=== PATIENT | male | born 2000 | race Two or more races ===

== ENCOUNTER 2022-05-24 11:08 | Inpatient (IN) | payer OTHER ==
[~2022-05-24] VITALS: Ht 188 cm; Wt 65.0 kg
[2022-05-24 12:19] LABS: Basophils # (auto) 0.2 10 ^3/uL (0-0.2); Basophils % (auto) 0.8 % (0.0-2.0); Eosinophils # (auto) 0 10 ^3/uL (0-0.8); Eosinophils % (auto) 0.1 % (0.0-7.0); Hematocrit 45.5 % (41.0-53.0); Hemoglobin 15.6 g/dL (13.5-17.5); Lymphocytes % (auto) 4.9 % (10.0-50.0); Mean Corpuscular Hemoglobin 31.5 pg (28.0-32.0); Mean Corpuscular Hgb Conc. 34.4 g/dL (32.0-36.0); Mean Corpuscular Volume 91.6 fL (80.0-100.0); Monocytes # (auto) 1.5 10 ^3/uL (0-1.3); Monocytes % (auto) 7.2 % (0.0-12.0); Neutrophils # (auto) 18.4 10 ^3/uL (1.6-8.6); Nucleated Red Blood Cells % 0.1 %; Red Blood Cells 4.97 10^6/uL (4.5-5.90); Red Cell Distribution Width 12.3 % (11.8-14.3); White Blood Cell 21.1 10^3/uL (4.4-10.8)
[2022-05-24 12:29] LABS: Albumin 4.5 g/dL (3.4-5.0); Calcium 8.9 mg/dL (8.5-10.1); Potassium 4.2 mmol/L (3.5-5.1)
[2022-05-24 12:32] LABS: Bilirubin, Total 2.7 mg/dL (0.2-1.0); Total Protein 7.6 g/dL (6.4-8.2)
[2022-05-24 13:08] LABS: INR 1.01 (0.9-1.15); Partial Thromboplastin Time 27.3 sec (24.6-33.4)
[2022-05-24] MEDS ORDERED: LORazepam 0.5 MG TAB PO PRN (13:15)
[2022-05-24] MEDS ORDERED: SODIUM CHLORIDE 0.9% 1,000 ML IV ONE (13:15)
[2022-05-24] MEDS ORDERED: DOXYCYCLINE 100MG/250ML 250 ML IV ONE (13:15)
[2022-05-24] MEDS ORDERED: ONDANSETRON HCL 4 MG/2 ML VIAL IV PRN (13:15)
[2022-05-24] MEDS ORDERED: ACETAMINOPHEN 325 MG TAB PO PRN (13:15)
[2022-05-24] MEDS ORDERED: DOCUSATE SOD 100 MG CAP PO PRN (13:15)
[2022-05-24 16:36] LABS: Urine Bacteria NONE SEEN /hpf (None Seen); Urine Blood 3+ /uL (Negative); Urine Mucus FEW (None Seen); Urine Specific Gravity 1.018 (1.001-1.035); Urine WBC 2815 /hpf (0 - 3); Urine WBC Clumps PRESENT /hpf (None Seen)
[2022-05-24] MEDS: SODIUM CHLOR 0.9% PF (SALINE LOCK) 10ML VIAL/SYR IV SCH (17:45)
[2022-05-25] VITALS (9 sets, daily range): BP systolic 80–158; BP diastolic 40–72
[2022-05-25] MEDS: SODIUM CHLOR 0.9% PF (SALINE LOCK) 10ML VIAL/SYR IV SCH ×4 (00:06→22:28)
[2022-05-25] MEDS: DOXYCYCLINE 100MG/250ML 250 ML IV SCH ×3 (00:07→22:50)
[2022-05-25] MEDS: MORPHINE SULFATE INJ 2 MG/ml SYRG IV PRN ×2 (00:14→21:23)
[2022-05-25 08:27] LABS: Basophils # (auto) 0 10 ^3/uL (0-0.2); Basophils % (auto) 0.2 % (0.0-2.0); Eosinophils # (auto) 0 10 ^3/uL (0-0.8); Eosinophils % (auto) 0.1 % (0.0-7.0); Hematocrit 41.2 % (41.0-53.0); Lymphocytes # (auto) 1.2 10 ^3/uL (0.4-5.4); Lymphocytes % (auto) 6.9 % (10.0-50.0); Mean Corpuscular Hemoglobin 31.3 pg (28.0-32.0); Mean Corpuscular Volume 92.1 fL (80.0-100.0); Monocytes # (auto) 1.8 10 ^3/uL (0-1.3); Neutrophils # (auto) 14.5 10 ^3/uL (1.6-8.6); Neutrophils % (auto) 82.8 % (37.0-80.0); Red Blood Cells 4.48 10^6/uL (4.5-5.90); Red Cell Distribution Width 12.3 % (11.8-14.3); White Blood Cell 17.5 10^3/uL (4.4-10.8)
[2022-05-25 11:30] LABS: Hepatitis B Surface Antibody Negative (Negative)
[2022-05-25 12:09] LABS: Hepatitis A Total Antibody Positive (Negative)
[2022-05-25] MEDS: cefTRIAXone 1GM/50ML D5W 50 ML IV SCH (12:10)
[2022-05-25 15:01] LABS: Hepatitis C Antibody Negative (Negative)
[2022-05-25] MEDS: HYDROcodone-ACET 5/325MG TAB PO PRN (18:22)
[2022-05-26 05:06] VITALS: BP 101/57
[2022-05-26] MEDS: SODIUM CHLOR 0.9% PF (SALINE LOCK) 10ML VIAL/SYR IV SCH ×3 (05:59→23:32)
[2022-05-26 08:00] VITALS: BP 101/54
[2022-05-26 08:06] LABS: RPR Non Reactive (Non Reactive)
[2022-05-26 08:15] LABS: Basophils # (auto) 0 10 ^3/uL (0-0.2); Basophils % (auto) 0.1 % (0.0-2.0); Eosinophils # (auto) 0.1 10 ^3/uL (0-0.8); Eosinophils % (auto) 0.4 % (0.0-7.0); Hemoglobin 14.3 g/dL (13.5-17.5); Lymphocytes # (auto) 1.5 10 ^3/uL (0.4-5.4); Lymphocytes % (auto) 9.4 % (10.0-50.0); Mean Corpuscular Hemoglobin 31.1 pg (28.0-32.0); Mean Corpuscular Hgb Conc. 34.1 g/dL (32.0-36.0); Mean Corpuscular Volume 91.2 fL (80.0-100.0); Monocytes # (auto) 1.9 10 ^3/uL (0-1.3); Monocytes % (auto) 11.8 % (0.0-12.0); Neutrophils # (auto) 12.5 10 ^3/uL (1.6-8.6); Neutrophils % (auto) 78.3 % (37.0-80.0); Nucleated Red Blood Cells % 0.1 %; Red Blood Cells 4.61 10^6/uL (4.5-5.90); Red Cell Distribution Width 11.9 % (11.8-14.3); White Blood Cell 15.9 10^3/uL (4.4-10.8)
[2022-05-26 09:00] VITALS: BP 101/54
[2022-05-26] MEDS: cefTRIAXone 1GM/50ML D5W 50 ML IV SCH (09:05)
[2022-05-26] MEDS: HYDROcodone-ACET 5/325MG TAB PO PRN ×2 (09:14→19:59)
[2022-05-26] MEDS: DOXYCYCLINE 100MG/250ML 250 ML IV SCH ×2 (12:40→23:32)
[2022-05-26 12:48] VITALS: BP 103/45
[2022-05-26 17:00] VITALS: BP 128/44
[2022-05-26] MEDS: MORPHINE SULFATE INJ 2 MG/ml SYRG IV PRN (17:18)
[2022-05-26 22:00] VITALS: BP 119/60
[2022-05-27 05:00] VITALS: BP 125/68
[2022-05-27] MEDS: SODIUM CHLOR 0.9% PF (SALINE LOCK) 10ML VIAL/SYR IV SCH ×3 (06:37→21:20)
[2022-05-27 07:16] LABS: Basophils # (auto) 0 10 ^3/uL (0-0.2); Basophils % (auto) 0.3 % (0.0-2.0); Eosinophils # (auto) 0.2 10 ^3/uL (0-0.8); Eosinophils % (auto) 1.8 % (0.0-7.0); Hematocrit 41.4 % (41.0-53.0); Hemoglobin 14.6 g/dL (13.5-17.5); Lymphocytes # (auto) 1.6 10 ^3/uL (0.4-5.4); Lymphocytes % (auto) 14.9 % (10.0-50.0); Mean Corpuscular Hemoglobin 31.9 pg (28.0-32.0); Mean Corpuscular Hgb Conc. 35.2 g/dL (32.0-36.0); Mean Corpuscular Volume 90.8 fL (80.0-100.0); Monocytes # (auto) 1.5 10 ^3/uL (0-1.3); Monocytes % (auto) 13.9 % (0.0-12.0); Neutrophils # (auto) 7.4 10 ^3/uL (1.6-8.6); Neutrophils % (auto) 69.1 % (37.0-80.0); Red Blood Cells 4.56 10^6/uL (4.5-5.90); Red Cell Distribution Width 12.3 % (11.8-14.3); White Blood Cell 10.7 10^3/uL (4.4-10.8)
[2022-05-27 08:32] VITALS: BP 101/45
[2022-05-27] MEDS: cefTRIAXone 1GM/50ML D5W 50 ML IV SCH (09:42)
[2022-05-27] MEDS: HYDROcodone-ACET 5/325MG TAB PO PRN ×2 (10:16→19:40)
[2022-05-27] MEDS: DOXYCYCLINE 100MG/250ML 250 ML IV SCH ×2 (12:07→22:35)
[2022-05-27 12:18] VITALS: BP 121/76
[2022-05-27 16:27] VITALS: BP 104/43
[2022-05-27 22:25] VITALS: BP 110/46
[2022-05-28 04:37] VITALS: BP 106/43
[2022-05-28] MEDS: SODIUM CHLOR 0.9% PF (SALINE LOCK) 10ML VIAL/SYR IV SCH (06:07)
[2022-05-28 09:12] VITALS: BP 100/39
[2022-05-28] MEDS: cefTRIAXone 1GM/50ML D5W 50 ML IV SCH (09:17)
[2022-05-28] MEDS: DOXYCYCLINE 100MG/250ML 250 ML IV SCH (11:14)
[2022-05-28 12:46] VITALS: BP 107/44
== END 2022-05-28 15:20 | disposition home or self-care (01) | DRG 728 ==
LOC: ER 11:08 → EDBD 11:08 → OVERFLOW 13:09 → WEST WING 23:52
PROVIDERS: ADMIT Internal Medicine; ATTEND Internal Medicine
DX: N45.1 Epididymitis (principal); N30.00 Acute cystitis without hematuria; R65.10 Systemic inflammatory response syndrome (SIRS) of non-infectious origin without acute organ dysfunction; Z68.1 Body mass index [BMI] 19.9 or less, adult; R63.6 Underweight; Z20.822 Contact with and (suspected) exposure to COVID-19
CPT/HCPCS: 36415; 76870; 80053; 81001; 85025; 85610; 85730; 86592; 86703; 86704; 86706; 86708; 86803; 87086; 87088; 87186; 87340; 87426; G0378; J0696; J3490